=== PATIENT | female | born 1975 | race Caucasian/White ===

== ENCOUNTER 2019-10-20 22:44 | Emergency (ER) | payer BC ==
[2019-10-20 23:50] LABS: Absolute Lymphocytes (CBC) 2.9 K/uL (0.7-4.9); Basophils % 0.3 % (0-1.3); Hematocrit 44.4 % (36.0-45.0); Lymphocytes % 34.3 % (15.3-44.8); MPV 8.5 fL (7.6-11.3); RBC Red Blood Cell Count 5.07 M/uL (3.86-4.86)
[2019-10-20 23:51] LABS: Protime INR 1.03
[2019-10-21 00:04] LABS: ALT/SGPT 76 U/L (12-78); AST/SGOT 46 U/L (15-37); Albumin 3.6 g/dL (3.4-5.0); Alkaline Phosphatase 95 U/L (45-117); BUN Blood Urea Nitrogen 11 mg/dL (7-18); Bicarbonate 30 mmol/L (21-32); Bilirubin Direct < 0.1 mg/dL (0-0.2); Bilirubin Total 0.3 mg/dL (0.2-1.0); Glucose Level 128 mg/dL (74-106); NT PRO-BNP 41 pg/mL (<125); Potassium 3.6 mmol/L (3.5-5.1); Protein, Total 7.4 g/dL (6.4-8.2); Sodium Level 139 mmol/L (136-145); Troponin (Emerg Dept Use Only) < 0.02 ng/mL (0.0-0.045)
[2019-10-21] MEDS ORDERED: KETOROLAC 30 MG/ML INJ ONE (00:37)
[2019-10-21] MEDS ORDERED: cloNIDine HCL 0.1 MG TAB ONE (00:37)
[2019-10-21] MEDS ORDERED: IBUPROFEN 200 MG TAB PO ONE (00:43)
[2019-10-21] MEDS ORDERED: IBUPROFEN 400 MG TAB ONE (00:43)
--- NOTE | 2019-10-21 01:21 | ER ---
Nurse's Notes [facility] Name: Lucille Theodore Age: 44 yrs Sex: Female : 1975 Arrival Date: 10/20/2019 Time: 22:47 Bed 8 Private MD: Diagnosis: chest wall pain;Hypertensive urgency Presentation: 10/19 23:02 Chief complaint: Patient states: BP at home 172/108, then 171/106. Reports constant ll1 chest pressure with SOB today. Out of BP med for 6 weeks. Coronavirus screen: Proceed with normal triage. Patient denies a cough. Patient reports shortness of breath or difficulty breathing. Patient denies measured and/or subjective temperature greater than 100.4F prior to today's visit. Patient denies travel on a cruise ship or to a country the [facility] currently lists as an affected area. Patient denies contact with known and/or suspected case of COVID-19. Ebola Screen: Patient denies travel to an Ebola-affected area in the 21 days before illness onset. Initial Sepsis Screen: Does the patient meet any 2 criteria? HR > 90 bpm. No. Patient's initial sepsis screen is negative. Does the patient have a suspected source of infection? No. Patient's initial sepsis screen is negative. Risk Assessment: Do you want to hurt yourself or someone else? Patient reports no desire to harm self or others. Onset of symptoms was October 20, 2019. 23:02 Method Of Arrival: Ambulatory ll1 23:02 Acuity: RACHEL 3 ll1 Historical: - Allergies: 23:05 ivory soap; ll1 - PMHx: 23:05 Hypothyroidism; Hypertension; ll1 - PSHx: 23:05 Hysterectomy; Tonsillectomy; Hernia repair; ll1 - Immunization history:: Adult Immunizations unknown. - Social history:: Patient/guardian denies using alcohol, street drugs, tobacco products, Smoking status: unknown. Screenin:37 Abuse screen: Denies threats or abuse. Nutritional screening: No deficits noted. ea Tuberculosis screening: No symptoms or risk factors identified. Fall Risk None identified. Assessment: 23:38 General: Appears in no apparent distress. Behavior is calm, cooperative, appropriate ea for age. Pain: Complains of pain in chest Pain does not radiate. Pain began 1 hour ago. Neuro: Level of Consciousness is awake, alert, obeys commands, Oriented to person, place, time, situation. Cardiovascular: Patient's skin is warm and dry. Respiratory: Airway is patent Respiratory effort is even, unlabored, Respiratory pattern is regular, symmetrical. Derm: Skin is pink, warm \T\ dry. 10/20 00:40 Reassessment: Patient and/or family updated on plan of care and expected duration. Pain ea level reassessed. Patient is alert, oriented x 3, equal unlabored respirations, skin warm/dry/pink. Patient states feeling better. 01:29 Reassessment: Patient and/or family updated on plan of care and expected duration. Pain ea level reassessed. Patient is alert, oriented x 3, equal unlabored respirations, skin warm/dry/pink. Discharge instruction given to patient, verbalized the understanding of instruction. pt left ED ambulatory tolerating well. Patient states feeling better. Vital Signs: 10/19 23:02 BP 171 / 101; Pulse 98; Resp 17; Temp 99.0; Pulse Ox 97% ; Pain 4/10; ll1 23:40 BP 156 / 84; Pulse 88; Resp 18; Pulse Ox 100% ; ea 10/20 00:40 BP 154 / 92; Pulse 88; Resp 18; Pulse Ox 98% on R/A; ea 01:30 BP 149 / 84; Pulse 87; Resp 18; Pulse Ox 98% ; ea ED Course: 10/19 22:47 Patient arrived in ED. cl3 22:54 Sonu Khan MD is Attending Physician. tw4 23:04 Triage completed. ll1 23:05 Arm band placed on Patient placed in an exam room, on a stretcher. ll1 23:16 XRAY Chest (1 view) In Process Unspecified. EDMS 23:37 Keila Robles, MARI is Primary Nurse. ea 23:37 Patient has correct armband on for positive identification. Bed in low position. Call ea light in reach. Side rails up X2. satellite project site monitor on. Pulse ox on. NIBP on. 23:37 Missed attempt(s): 22 gauge in right antecubital area. Bleeding controlled, band aid ea applied, catheter tip intact. Patient maintains SpO2 saturation greater than 95% on room air. 10/20 01:30 No provider procedures requiring assistance completed. Patient did not have IV access ea during this emergency room visit. Administered Medications: 00:34 Not Given (Patient Refused; reports she rather take ibuprofen): TORadol 30 mg IVP once ea 00:34 Drug: cloNIDine 0.1 mg Route: PO; ea 01:31 Follow up: Response: No adverse reaction ea 00:40 Drug: Ibuprofen 600 mg Route: PO; ea 01:31 Follow up: Response: No adverse reaction ea Outcome: 01:19 Discharge ordered by MD. calderon 01:30 Discharged to home ambulatory, with family. ea 01:30 Condition: stable 01:30 Discharge instructions given to patient, Instructed on discharge instructions, follow up and referral plans. medication usage, Demonstrated understanding of instructions, follow-up care, medications, Prescriptions given X 2. 01:31 Patient left the ED. ea Signatures: Dispatcher [employer] Keila Trujillo, RN RN Sonu Guerrero MD MD tw4 Ashley Scott cl3 Dali Scott RN RN ll1
--- NOTE | 2019-10-21 01:21 | EDPHYS ---
Physician Documentation [facility] Name: Lucille Theodore Age: 44 yrs Sex: Female : 1975 Arrival Date: 10/20/2019 Time: 22:47 Bed 8 Private MD: ED Physician Sonu Khan HPI: 10/20 01:44 This 44 yrs old Female presents to ER via Ambulatory with complaints of tw4 Shortness Of Breath, High Blood Pressure, Chest Pain. 01:44 The patient has elevated blood pressure and discovered this at home. Onset: The tw4 symptoms/episode began/occurred today. pt states she hasn't taken her HTN medications in over two month. Historical: - Allergies: 10/19 23:05 ivory soap; ll1 - PMHx: 23:05 Hypothyroidism; Hypertension; ll1 - PSHx: 23:05 Hysterectomy; Tonsillectomy; Hernia repair; ll1 - Immunization history:: Adult Immunizations unknown. - Social history:: Patient/guardian denies using alcohol, street drugs, tobacco products, Smoking status: unknown. ROS: 10/20 01:44 Constitutional: Negative for fever, chills, and weight loss, Eyes: Negative for injury, tw4 pain, redness, and discharge, Respiratory: Negative for shortness of breath, cough, wheezing, and pleuritic chest pain, Abdomen/GI: Negative for abdominal pain, nausea, vomiting, diarrhea, and constipation. MS/Extremity: Negative for injury and deformity, Skin: Negative for injury, rash, and discoloration, Neuro: Negative for headache, weakness, numbness, tingling, and seizure. Cardiovascular: Positive for chest pain, with cough, with movement, Negative for edema, orthopnea, palpitations. Exam: 01:44 Constitutional: This is a well developed, well nourished patient who is awake, alert, tw4 and in no acute distress. Head/Face: Normocephalic, atraumatic. Cardiovascular: Regular rate and rhythm with a normal S1 and S2. No gallops, murmurs, or rubs. Normal PMI, no JVD. No pulse deficits. Respiratory: Lungs have equal breath sounds bilaterally, clear to auscultation and percussion. No rales, rhonchi or wheezes noted. No increased work of breathing, no retractions or nasal flaring. Abdomen/GI: Soft, non-tender, with normal bowel sounds. No distension or tympany. No guarding or rebound. No evidence of tenderness throughout. Back: No spinal tenderness. No costovertebral tenderness. Full range of motion. 01:44 MS/ Extremity: Pulses equal, no cyanosis. Neurovascular intact. Full, normal range of motion. Neuro: Awake and alert, GCS 15, oriented to person, place, time, and situation. Cranial nerves II-XII grossly intact. Motor strength 5/5 in all extremities. Sensory grossly intact. Cerebellar exam normal. Normal gait. 01:44 Chest/axilla: Inspection: normal, Palpation: tenderness, that is severe, of the mid-sternal area, that totally reproduces the patient's complaints. Vital Signs: 10/19 23:02 BP 171 / 101; Pulse 98; Resp 17; Temp 99.0; Pulse Ox 97% ; Pain 4/10; ll1 23:40 BP 156 / 84; Pulse 88; Resp 18; Pulse Ox 100% ; ea 10/20 00:40 BP 154 / 92; Pulse 88; Resp 18; Pulse Ox 98% on R/A; ea 01:30 BP 149 / 84; Pulse 87; Resp 18; Pulse Ox 98% ; ea MDM: 10/19 22:56 Patient medically screened. tw4 10/20 01:44 Differential diagnosis: hypertensive crisis, Malignant HTN. Data reviewed: vital signs, tw4 nurses notes. Data reviewed: lab test result(s), cardiac enzymes, CBC, hepatic panel, EKG, radiologic studies, plain films. Data interpreted: Pulse oximetry: Interpretation: normal. Counseling: I had a detailed discussion with the patient and/or guardian regarding: the historical points, exam findings, and any diagnostic results supporting the discharge/admit diagnosis, lab results. Special discussion: Based on the patient's history, exam, and Dx evaluation, there is no indication for emergent intervention or inpatient Tx. It is understood by the patient/guardian that if the Sx's persist or worsen they need to return immediately for re-evaluation. I discussed with the patient/guardian in detail that at this point there is no indication for admission to the hospital. It is understood, however, that if the symptoms persist or worsen the patient needs to return immediately for re-evaluation. 10/19 22:54 Order name: Basic Metabolic Panel; Complete Time: 00:11 10/20 00:11 Interpretation: Normal except: GLUC 128; GFR 74. 10/19 22:54 Order name: CBC with Diff; Complete Time: 00:11 10/20 00:11 Interpretation: Normal except: RBC 5.07. 10/19 22:54 Order name: LFT's; Complete Time: 00:11 10/20 00:12 Interpretation: Normal except: GLOB 3.8; A/G 0.9; AST 46. 10/19 22:54 Order name: Magnesium; Complete Time: 00:11 10/20 00:13 Interpretation: Within normal limits: MG 2.0. 10/19:54 Order name: NT PRO-BNP; Complete Time: 00:11 10/20 00:13 Interpretation: Within normal limits: NT PRO-BNP 41. 10/19:54 Order name: PT-INR; Complete Time: 00:11 10/20 00:13 Interpretation: Within normal limits: PT 12.1. 10/19 22:54 Order name: Troponin (emerg Dept Use Only); Complete Time: 00:11 10/20 00:14 Interpretation: Within normal limits: TROPED < 0.02. 10/19 22:54 Order name: XRAY Chest (1 view) 10/19 22:54 Order name: EKG; Complete Time: 22:55 10/19 22:54 Order name: Cardiac monitoring; Complete Time: 23:39 10/19 22:54 Order name: EKG - Nurse/Tech; Complete Time: 23:39 10/19 22:54 Order name: Labs collected and sent; Complete Time: 23:40 10/19 22:54 Order name: O2 Per Protocol; Complete Time: 23:40 10/19 22:54 Order name: O2 Sat Monitoring; Complete Time: 23:40 EC:59 Rate is 101 beats/min. Rhythm is regular, Sinus tachycardia. QRS [place] is Normal. CO tw4 interval is normal. QRS interval is normal. QT interval is normal. No Q waves. T waves are Normal. No ST changes noted. Clinical impression: NSR w/ Non-specific ST/T Changes and Sinus tachycardia. Interpreted by me. Reviewed by me. Administered Medications: 00:34 Not Given (Patient Refused; reports she rather take ibuprofen): TORadol 30 mg IVP once ea 00:34 Drug: cloNIDine 0.1 mg Route: PO; ea 01:31 Follow up: Response: No adverse reaction 00:40 Drug: Ibuprofen 600 mg Route: PO; ea :31 Follow up: Response: No adverse reaction ea Disposition: 10/21/19 01:19 Discharged to Home. Impression: chest wall pain, Hypertensive urgency. - Condition is Stable. - Discharge Instructions: Costochondritis, Hypertension. - Prescriptions for Ibuprofen 800 mg Oral Tablet - take 1 tablet by ORAL route every 8 hours As needed take with food; 30 tablet. Bisoprolol- Hydrochlorothiazide 2.5-6.25 mg Oral Tablet - take 1 tablet by ORAL route once daily; 30 tablet. - Medication Reconciliation Form, Thank You Letter, Antibiotic Education, Prescription Opioid Use form. - Follow up: Private Physician; When: Upon discharge from the Emergency Department; Reason: Recheck today's complaints, Continuance of care, Re-evaluation by your physician. - Problem is new. - Symptoms have improved. Signatures: Dispatcher [employer] EDMS Keila Robles, RN RN Sonu Guerrero MD MD tw4 Dali Scott RN RN ll1 Corrections: (The following items were deleted from the chart) 00:41 05/ 22:54 IV Saline Lock ordered. [facility] 10/20 01:31 01:19 10/21/2019 01:19 Discharged to Home. Impression: chest wall pain; Hypertensive ea urgency. Condition is Stable. Forms are Medication Reconciliation Form, Thank You Letter, Antibiotic Education, Prescription Opioid Use. Follow up: Private Physician; When: Upon discharge from the Emergency Department; Reason: Recheck today's complaints, Continuance of care, Re-evaluation by your physician. Problem is new. Symptoms have improved. tw4
[2019-10-21 03:11] VITALS: TEMP 99
[2019-10-21 04:54] VITALS: BP 154/92; O2SAT 98
--- NOTE | 2019-10-21 07:11 | RAD REPORT ---
EXAM DESCRIPTION: RAD - Chest Single View - 10/20/2019 11:15 pm CLINICAL HISTORY: CHEST PAIN, hypertension, shortness of breath COMPARISON: None TECHNIQUE: AP portable chest image was obtained 10/20/2019 11:15 pm . FINDINGS: Lung volumes are relatively low with lung arreola clear of any acute process. No failure or volume overload. Heart and vasculature are normal. No measurable pleural effusion and no pneumothorax. No acute bony abnormality seen. No acute aortic findings suspected. IMPRESSION: No acute cardiopulmonary process.
--- NOTE | 2019-10-21 16:19 | EKG ---
Test Date: 2019-10-20 Test Time: 23:25:22 Metal Trim Erector: JOSETTE MEASUREMENT RESULTS: Intervals: Rate: 94 SC: 164 QRSD: 86 QT: 348 QTc: 435 [place]: P: 55 SC: 164 QRS: 18 T: 75 INTERPRETIVE STATEMENTS: Normal sinus rhythm Possible Left atrial enlargement Nonspecific ST and T wave abnormality Abnormal ECG No previous ECG available for comparison Electronically Signed On 10-21-19 16:16:57 CDT by Spencer Coello
== END 2019-10-21 01:31 | disposition home or self-care (01) ==
LOC: ER 22:44
DX: I16.0 Hypertensive urgency (principal); R07.89 Other chest pain; I10 Essential (primary) hypertension; Z91.048 Other nonmedicinal substance allergy status
CPT/HCPCS: 36415; 71045; 80048; 80076; 83735; 83880; 84484; 85025; 85610; 93005; 99285

== ENCOUNTER 2024-05-28 15:05 | Emergency (ER) | payer BC, SELFPAY ==
[2024-05-28] MEDS ORDERED: methocarbamoL 500 MG TAB ONE (16:15)
[2024-05-28] MEDS ORDERED: ACETAMINOPHEN 500 MG TAB ONE (16:15)
[2024-05-28] MEDS ORDERED: KETOROLAC 30 MG/ML INJ ONE (16:16)
--- NOTE | 2024-05-28 16:58 | RAD REPORT ---
EXAMINATION: XR LEFT TIBIA AND FIBULA CLINICAL INDICATION: . anterior tibia injury TECHNIQUE:Two view radiograph of the left tibia and fibula were obtained. COMPARISON: No prior exam. FINDINGS: No bone or joint abnormality detected. Large calcaneal spurs.
--- NOTE | 2024-05-28 17:03 | ER ---
Nurse's Notes [facility] Name: Lucille Theodore Age: 48 yrs Sex: Female : 1975 Arrival Date: 05/28/2024 Time: 15:05 Bed 12 Private MD: Diagnosis: Contusion of left lower leg Presentation: 05/28 15:47 Chief complaint: Patient states: dropped a 90lb box on my calf yesterday. Coronavirus ko1 screen: At this time, the client does not indicate any symptoms associated with coronavirus-19. Ebola Screen: No symptoms or risks identified at this time. Initial Sepsis Screen: Does the patient meet any 2 criteria? No. Patient's initial sepsis screen is negative. Does the patient have a suspected source of infection? No. Patient's initial sepsis screen is negative. Risk Assessment: Do you want to hurt yourself or someone else? Patient reports no desire to harm self or others. Onset of symptoms was May 28, 2024. 15:47 Method Of Arrival: Ambulatory ko1 15:47 Acuity: RACHEL 3 ko1 Triage Assessment: 15:51 General: Appears uncomfortable, Behavior is calm, cooperative, appropriate for age. ko1 Pain: Complains of pain in medial aspect of left calf. Musculoskeletal: Reports pain in medial aspect of left calf. Injury Description: Bruise sustained to medial aspect of left calf is green, purple. 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 - Infectious Disease History:: Denies. - Social history:: Smoking status: Patient denies any tobacco usage or history of. Screenin:33 [facility] ED Fall Risk Assessment (Adult) History of falling in the last 3 months, ap3 including since admission No falls in past 3 months (0 pts) Confusion or Disorientation No (0 pts) Intoxicated or Sedated No (0 pts) Impaired Gait No (0 pts) Mobility Assist Device Used No (0 pt) Altered Elimination No (0 pt) Score/Fall Risk Level 0 - 2 = Low Risk Oriented to surroundings, Maintained a safe environment, Educated pt \T\ family on fall prevention, incl call for assistance when getting out of bed, Assessed \T\ reinforced patient's understanding of fall precautions, Hourly rounding (assess needs \T\ fall precautionary measures) done, Used ambulatory aids as needed (educated on \T\ assisted with), Used gait belt as appropriate. Abuse screen: Denies threats or abuse. Nutritional screening: No deficits noted. Tuberculosis screening: No symptoms or risk factors identified. Assessment: 16:33 General: Appears in no apparent distress. Behavior is calm, cooperative, appropriate ap3 for age. Pain: Complains of pain in medial aspect of left calf. Neuro: Level of Consciousness is awake, alert, obeys commands, Oriented to person, place, time, situation, Appropriate for age. Cardiovascular: Patient's skin is warm and dry. Respiratory: Airway is patent Respiratory effort is even, unlabored, Respiratory pattern is regular, symmetrical. Derm: Bruising that is on medial aspect of left calf. Vital Signs: 15:47 BP 182 / 113; Pulse 84; Resp 16; Temp 97; Pulse Ox 100% ; ko1 ED Course: 15:09 Patient arrived in ED. ra3 15:09 Jairo Lagos MD is Attending Physician. ec2 15:51 Triage completed. ko1 15:51 Arm band placed on right wrist. Patient placed in an exam room, on a stretcher, on ko1 pulse oximetry, Patient notified of wait time. 16:05 Huyen Velez, MARI is Primary Nurse. ap3 16:34 No provider procedures requiring assistance completed. ap3 16:51 Tib Fib Left XRAY In Process Unspecified. EDMS 17:23 Patient did not have IV access during this emergency room visit. ap3 17:24 Patient has correct armband on for positive identification. Provided Education on: ap3 discharge instructions. Administered Medications: 16:19 Not Given (Patient Refused): mg IM once ap3 16:32 Drug: Methocarbamol PO 500 mg PO once Route: PO; ph 17:24 Follow up: Response: No adverse reaction; Pain is decreased ap3 16:32 Drug: Acetaminophen PO 1000 mg PO once Route: PO; ph 17:24 Follow up: Response: No adverse reaction; Pain is decreased ap3 Medication: 17:24 VIS not applicable for this client. ap3 Outcome: 17:03 Discharge ordered by . ec2 17:23 Discharged to home ambulatory, ap3 17:23 Condition: good 17:23 Discharge instructions given to patient, Instructed on discharge instructions, follow up and referral plans. Demonstrated understanding of instructions, follow-up care, medications, Prescriptions given X 1, 17:27 Patient left the ED. ap3 Signatures: Dispatcher [employer] Nancy Jorge RN RN Huyen Velez RN RN ap3 Qian Nazario RN RN ko1 Jairo Lagos MD MD ec2 Marylou Morrell ra3
--- NOTE | 2024-05-28 17:03 | EDPHYS ---
Physician Documentation [facility] Name: Lucille Theodore Age: 48 yrs Sex: Female : 1975 Arrival Date: 05/28/2024 Time: 15:05 Bed 12 Private MD: ED Physician Jairo Lagos HPI: 05/28 15:58 This 48 yrs old Female presents to ER via Ambulatory with complaints of Foot ec2 Injury - Left, Leg Injury. 15:58 Patient arrives today for evaluation of a left leg injury. Reports that she dropped a ec2 heavy object on her left tibia. No deformities, has been weightbearing however has been having increasing pain which is what prompted evaluation today.. 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 - Infectious Disease History:: Denies. - Social history:: Smoking status: Patient denies any tobacco usage or history of. ROS: 15:58 Constitutional: as per hpi ec2 Exam: 15:58 Constitutional: GEN: NAD Head: atraumatic Eyes: EOMI Ears: External ears are ec2 normal. CV: regular rate LUNGS: no respiratory distress ABD: non-distended SKIN: no evidence of rashes MSK: Left anterior tibia with swelling and bruising noted, no deformity present, intact distal neurovascular status, no calf swelling appreciated. Vital Signs: 15:47 BP 182 / 113; Pulse 84; Resp 16; Temp 97; Pulse Ox 100% ; ko1 MDM: 15:51 Medical Screening Exam initiated ec2 15:58 Data reviewed: vital signs, nurses notes. ED course: Patient arrives today for ec2 evaluation of leg pain after injury. Exam shows TTP as above. Will obtain radiograph. Will evaluate for a fracture. Additionally considered other processes such as contusion, doubt DVT.. 16:36 ED course: Tib-fib x-ray independently reviewed and interpreted by me, shows no bony ec2 fracture. Suspect contusion. Will discharge home. Return precautions given.. 05/28 15:58 Order name: Tib Fib Left XRAY; Complete Time: 17:03 ec2 05/28 17:03 Order name: Edgard Wrap; Complete Time: 17:24 ec2 Administered Medications: 16:19 Not Given (Patient Refused): [id number] mg IM once ap3 16:32 Drug: Methocarbamol PO 500 mg PO once Route: PO; ph 17:24 Follow up: Response: No adverse reaction; Pain is decreased ap3 16:32 Drug: Acetaminophen PO 1000 mg PO once Route: PO; ph 17:24 Follow up: Response: No adverse reaction; Pain is decreased ap3 Disposition Summary: 05/28/24 17:03 Discharge Ordered Notes: Location: Home ec2 Condition: Stable ec2 Diagnosis - Contusion of left lower leg ec2 Followup: ec2 - With: Private Physician - When: - Reason: Re-evaluation by your physician Discharge Instructions: - Discharge Summary Sheet ec2 - Contusion, [id number] ec2 Forms: - Medication Reconciliation Form ec2 - Antibiotic Education ec2 - Prescription Opioid Use ec2 - Patient Portal Instructions ec2 - Leadership Thank You Letter ec2 Prescriptions: - methocarbamol 500 mg Oral tablet - take 1 tablet ORAL route 4 times per day; 15 tablet; Refills: 0, Product ec2 Selection Permitted Signatures: Dispatcher [employer] Nancy Jorge RN RN ph Qian Nazario RN RN ko1 Jairo Lagos MD MD ec2 Huyen Velez RN ap3
[2024-05-28 17:43] VITALS: BP 182/113; TEMP 97; O2SAT 100
== END 2024-05-28 17:27 | disposition home or self-care (01) ==
LOC: ER 15:05
DX: S80.12XA Contusion of left lower leg, initial encounter (principal); I10 Essential (primary) hypertension; E03.9 Hypothyroidism, unspecified; W20.8XXA Other cause of strike by thrown, projected or falling object, initial encounter; Y93.9 Activity, unspecified; Y92.9 Unspecified place or not applicable
CPT/HCPCS: 99283